=== PATIENT | male | born 1995 | race Caucasian/White ===

== ENCOUNTER 2017-08-15 18:07 | Emergency (ER) | payer MEDICAID ==
[~2017-08-15] VITALS: Ht 177.8 cm; Wt 61.0 kg
[2017-08-15 18:30] VITALS: BP 125/100
== END 2017-08-15 22:34 | disposition home or self-care (01) ==
LOC: ER 18:09
DX: F32.9 Major depressive disorder, single episode, unspecified (principal)
CPT/HCPCS: 99284